=== PATIENT | female | born 1980 | race Caucasian/White ===

== ENCOUNTER 2020-12-26 22:43 | Emergency (ER) | payer OTHER ==
[~2020-12-26 22:43] MED LIST: XARELTO10 MG PO
[2020-12-26 23:53] LABS: BASOPHIL 0.3 % (0-2); EOSINOPHIL 0.2 % (0-5); MCH 28.5 pg (25.0-31.0); MCHC 33.3 g/dL (32.0-36.0); MCV 85.4 fL (78.0-100.0); MONOCYTE 8.1 % (0-12); MPV 10.8 fL (6.0-9.5); NEUTROPHIL 77.1 % (41-80); NRBC 0; PLT 353 K/uL (150-400); RBC 4.92 M/uL (4.20-5.40); RDW 12.3 % (11.5-14.0); WBC 10.5 K/uL (4.0-10.5)
[2020-12-27 00:09] LABS: ALBUMIN 3.9 g/dL (3.4-5.0); BILIRUBIN - TOTAL 0.1 mg/dL (0.2-1.0); BUN/CREAT RATIO (CALC) 14.1 RATIO; CREATININE 0.85 mg/dL (0.51-0.95); POTASSIUM 3.6 mmol/L (3.5-5.1); TOTAL PROTEIN 7.9 g/dL (6.4-8.2)
[2020-12-27 01:43] LABS: BILIRUBIN NEGATIVE (NEGATIVE); BLOOD 1+ Ery/uL (NEGATIVE); CLARITY CLEAR (CLEAR); COLOR YELLOW (YELLOW); GLUCOSE (U) NORMAL (NORMAL); LEUKOCYTES NEGATIVE Leu/uL (NEGATIVE); NITRITE NEGATIVE (NEGATIVE); PROTEIN NEGATIVE (NEGATIVE); SPECIFIC GRAVITY 1.025 (1.001-1.030); UROBILINOGEN 0.2 mg/dL (0.2-1.0); pH 5.5 (5.0-9.0)
[2020-12-27 01:52] LABS: BACTERIA TRACE; URINARY RBC RARE; URINARY WBC RARE
[2020-12-27] MEDS ORDERED: FLEXERIL5 MG PO (05:19)
[2020-12-27] MEDS ORDERED: OXY-IR 5MG5 MG PO (05:19)
== END 2020-12-27 05:45 | disposition home or self-care (01) ==
LOC: FER 22:43
PROVIDERS: Emergency Medicine
DX: R10.9 Unspecified abdominal pain (principal); M54.6 Pain in thoracic spine; Z98.890 Other specified postprocedural states; V49.40XA Driver injured in collision with unspecified motor vehicles in traffic accident, initial encounter; Y92.410 Unspecified street and highway as the place of occurrence of the external cause
CPT/HCPCS: 36415; 70450; 71260; 72125; 72128; 72131; 80053; 81001; 83690; 85025; J7030; Q9967